=== PATIENT | male | born 1960 | race Hispanic/Latino ===

== ENCOUNTER 2021-11-15 06:26 | Observation (INO) | payer MEDICARE, OTHER ==
[2021-11-15 07:27] LABS: Basophils % (Auto) 0.4 % (0.0-1.8); Eosinophils # (Auto) 0.1 K/mm3 (0.0-0.4); Eosinophils % (Auto) 1.8 % (0.0-4.3); Hematocrit 35.4 % (35.5-45.6); Hemoglobin 12.2 gm/dl (11.8-15.2); Lymphocytes # (Auto) 1.9 K/mm3 (1.2-5.4); Lymphocytes % (Auto) 25.5 % (13.4-35.0); Mean Corpuscular HGB Conc 35 % (32-34); Mean Corpuscular Volume 92 fl (84-94); Monocytes # (Auto) 0.5 K/mm3 (0.0-0.8); Monocytes % (Auto) 6.7 % (0.0-7.3); Platelet Count 107 K/mm3 (140-440); Red Blood Count 3.85 M/mm3 (3.65-5.03)
[2021-11-15 07:35] LABS: INR 0.97 (0.87-1.13)
[2021-11-15 07:36] LABS: Partial Thromboplastin Time 32.1 Sec. (24.2-36.6)
[2021-11-15 07:37] LABS: Blood Urea Nitrogen 14 mg/dL (9-20); Calcium 9.3 mg/dL (8.4-10.2); Hemolysis Index 1
[2021-11-15 07:53] LABS: BUN/Creatinine Ratio 23
[2021-11-15] MEDS: SODIUM CHLORIDE 0.9% 500 ML 500 ML IV SCH ×2 (07:53→09:05)
[2021-11-15] MEDS ORDERED: ASPIRIN EC 325 MG TAB PO SCH (08:00)
[2021-11-15] MEDS ORDERED: HEPARIN/NS 5000 UNIT/500ML 1,000 ML IR ONE (08:27)
[2021-11-15] MEDS ORDERED: HEPARIN 10,000 UNITS/10 ML VIAL ONE (08:28)
[2021-11-15] MEDS: LIDOCAINE (1%) 10 MG/1 ML VIAL 20 ML MDV ONE ×2 (08:34→08:54)
[2021-11-15] MEDS: MIDAZOLAM 2 MG/2 ML INJ ONE ×3 (08:38→09:05)
[2021-11-15] MEDS ORDERED: fentaNYL 100 MCG/2 ML INJ ONE (08:54)
[2021-11-15] MEDS ORDERED: HEPARIN/NS 5000 UNIT/500ML 500 ML IR ONE (09:28)
[2021-11-15] MEDS ORDERED: CLOPIDOGREL 300 MG TAB ONE (09:43)
[2021-11-15] MEDS ORDERED: ALUM-MAG HYDROXIDE-SIMETHICONE 200-200-20MG/5ML ORAL LIQD 30 ML ONE (09:46)
--- NOTE | 2021-11-15 10:04 | Short Stay Summary ---
Short Stay Documentation Date of service: 11/15/21 - History H&P: obtained from office - Allergies and Medications Current Medications: Allergies No Known Allergies Allergy (Verified 11/15/21 07:00) Home Medications Medication Instructions Recorded Confirmed Last Taken Type Aspirin EC [Halfprin EC] 81 mg PO DAILY 11/15/21 11/15/21 11/14/21 History 81 mg Buprenorphine HCl/Naloxone HCl 1 tab SL QID 11/15/21 11/15/21 11/14/21 History [Suboxone 8 mg-2 mg SL Film] 1 tab Escitalopram [Lexapro] 10 mg PO BID 11/15/21 11/15/21 11/14/21 History 10 mg LORazepam [Lorazepam] 0.5 mg PO BID 11/15/21 11/15/21 11/14/21 History 0.5mg Metformin HCl [metFORMIN ER 1,000 mg PO BID 11/15/21 11/15/21 11/13/21 History Osmotic] 1000 mg Rosuvastatin Calcium [Crestor] 10 mg PO DAILY 11/15/21 11/15/21 11/14/21 History 10 mg atenoloL [Tenormin] 50 mg PO DAILY 11/15/21 11/15/21 11/14/21 History 50 mg Active Medications Aspirin (Aspirin Ec 325 Mg Tab) 325 mg PO ONCE@0800 [facility] Stop: 11/15/21 14:00 Last Admin: 11/15/21 07:53 Dose: 325 mg Sodium Chloride (Nacl 0.9% 500 Ml) 500 mls @ 50 mls/hr IV DIRECT ALMITA Stop: 11/15/21 17:59 Last Admin: 11/15/21 09:05 Dose: 50 mls/hr - Physical exam Integumentary: other (Dressing clean dry and intact with no signs of bleeding or hematoma) - Brief post op/procedure progress note Date of procedure: 11/15/21 Pre-op diagnosis: Coronary artery disease Post-op diagnosis: same - Hospital course Hospital course: Patient presents today for cardiac cath. Patient had PCI of protected left main, ostial left circumflex. Through groin site. Patient tolerated procedure well with no complications. Patient to be admitted overnight and monitored. Will restart patient's home meds and initiate aspirin, Plavix, and statin. Plan of care discussed with patient and patient's family who verbalized understanding and acknowledgment 11/16/2021-patient resting in bed in no acute distress. Patient denies any complaints of chest pain. Patient's cardiac cath site dressing clean dry and intact with no signs of bleeding or hematoma. Patient to be discharged home with prescription for Plavix. Discussed with patient the importance of compliance with DAPT therapy. Patient verbalized understanding acknowledgment. Patient to follow-up in the office as an outpatient - Disposition Condition at discharge: Good - Discharge Diagnoses (1) Coronary artery disease Status: Acute (2) History of coronary artery bypass graft Status: Acute (3) Hypertension Status: Acute (4) Diabetes Status: Acute (5) Chronic pain Status: Acute Short Stay Discharge Plan Activity: advance as tolerated Diet: low fat, low cholesterol, low salt Wound: keep clean and dry, per your surgeon's advice Follow up with: LEN FRANCO MD [Primary Care Provider] - 7 Days TG VALLE MD [Staff Physician] - 12/04/21 2:00 pm (Patient has a follow up in our [place] location. ) Prescriptions: Clopidogrel [Plavix] 75 mg PO QDAY 30 Days #30 tablet
--- NOTE | 2021-11-15 10:41 | Cardiac Catherization Report ---
DATE OF PROCEDURE: 11/15/2021 CARDIAC CATHETERIZATION REFERRING PHYSICIAN: Percy Harris M.D. INDICATIONS FOR PROCEDURE: The patient is a very pleasant 61-year-old gentleman with history of coronary bypass surgery in 2004, recurrent chest tightness, abnormal nuclear stress test despite goal directed medical therapy, referred for left heart catheterization. Risks, benefits and alternatives were explained in length prior to obtaining informed consent. PROCEDURE IN DETAIL: The patient was brought back to the component lab tech in a postabsorptive state, prepped and draped in sterile fashion. An 8 mL of 2% lidocaine used to anesthetize the right groin. A standard 6-Wolof sheath used to cannulate the right common femoral artery via modified Seldinger technique. All exchanges performed to exchange a J-tip guidewire. A JL3.5 catheter used to engage the left main. No dampening or ventricularization. Cineangiography performed in multiple projections. JR4 catheter used to cross the aortic valve under fluoroscopic guidance. Left ventriculography performed in 30-degree S[place]AGO and 30-degree BELIZE[place] projections via hand injections, catheter flushed. Manual pullback performed with continuous pressure monitoring. Catheter was used to engage the right coronary. No dampening or ventricularization. Next, catheter was used to engage both SVGs to the right coronary, one is to the PDA, one is to mid right coronary. Next, catheter was used to engage the right subclavian, selectively the mid right subclavian and due to tortuosity, selective third order angiography was performed. ISAIAH is not present or atretic. Next, the catheter was carefully removed over a wire from the right subclavian and placed into the left subclavian carefully over a wire. Again, tortuosity is significant. Selective third order mid left subclavian angiography was performed. Next, selective DOCKERY angiography was performed. Next, catheter was carefully removed from the left subclavian over a wire. DATA: Aortic pressure is 150/60, LV pressure is 150, LVEDP of 20 mmHg. Left ventriculography reveals a normal left ventricular systolic performance, estimated ejection fraction of 55-60%. No evidence of aortic stenosis. CORONARY ANATOMY: This is a right dominant system. Right coronary is occluded natively in the mid segment. SVG to PDA is widely patent. SVG to mid right coronary is occluded. Left main without significant disease. LAD is occluded proximally. There is a 99% stenosis of the distal left main and ostial left circumflex. Again, ISAIAH to OM/lateral wall is occluded. DOCKERY to LAD is widely patent. The left subclavian is widely patent, just tortuous, same with the right subclavian, which is widely patent, just tortuous. The patient remained in normal sinus rhythm throughout the procedure. Given recurrent recalcitrant chest pain despite goal directed medical therapy, I believe the culprit lesion is unrevascularized lateral wall. Given occluded ISAIAH to LAD, we decided to proceed with PCI of protected left main, the ostial left circumflex. Heparin was given. Abnormal ACT was confirmed. The patient already got aspirin this morning. We used an EBU 3.75 guide to engage the left main without difficulty. A [place] wire used to cross the lesion without difficulty. We used a 3.0 x 12 compliant balloon to predilate the lesion. Next, a 3.5 x 15 [place] drug-eluting stent deployed at 12 ALIYA for 30 seconds. Excellent angiographic result. Intravascular ultrasound was used, which reveals a well-apposed and well-expanded stent throughout. The proximal left main and the remainder of the left circumflex is without significant obstructive disease. No dissection or perforation. Final angiogram reveals NGOC 3 flow, 0% residual stenosis, excellent angiographic result. There were no immediate complications. The patient is chest pain free, hemodynamically and electrically stable. I directly supervised the administration of fentanyl and Versed for moderate sedation from 8:50 a.m. to 9:40 a.m. No immediate complications identified. CONCLUSIONS: 1. Severe wales coronary artery disease as aforementioned with a chronic total occlusion of the mid arc right coronary. 2. Chronic total occlusion of proximal LAD. 3. Patent DOCKERY to LAD. 4. Occluded ISAIAH to OM. 5. Occluded SVG to mid right coronary. 6. Patent SVG to distal right coronary. 7. 99% distal left main to ostial left circumflex stenosis. A. Successful IVUS-guided percutaneous coronary intervention with placement of drug-eluting stent ([place] 3.5 x 15) with excellent final angiographic and ultrasonographic results. 8. Preserved left ventricular systolic performance, estimated ejection fraction 55-60%. 9. Patent but tortuous mid to distal right subclavian artery with atretic ISAIAH. 10. Patent, but tortuous left subclavian artery with patent DOCKERY. The patient is clinically stable. Aspirin, Plavix, statin. Continue current medications. Standard groin care. Results of procedure explained to the patient and family. All questions were addressed. The patient will be discharged home in stable condition tomorrow as long as there are no significant changes noted. TID: [id number] RECEIPT: [id number] ROHAN/ROSALINA
[2021-11-15] MEDS ORDERED: BUPRENORPHINE 2 MG/NALOXONE 0.5 MG FILM SL SCH (11:00)
[2021-11-15] MEDS ORDERED: traMADol 50 MG TAB PO PRN (11:00)
[2021-11-15] MEDS ORDERED: MORPHINE 2 MG/1 ML INJ IV PRN (11:00)
[2021-11-15] MEDS ORDERED: HYDROcodone/ACETAMINOPHEN 5-325 MG TAB PO PRN (11:00)
[2021-11-15] MEDS: BUPRENORPHINE 2 MG/NALOXONE 0.5 MG FILM SL SCH ×4 (11:31→21:40)
[2021-11-15] MEDS ORDERED: KETOROLAC 30 MG/1 ML INJ IV SCH (12:00)
[2021-11-15] MEDS ORDERED: ACETAMINOPHEN 325 MG TAB PO PRN (12:00)
[2021-11-15] MEDS ORDERED: ONDANSETRON 4 MG/2 ML INJ IV PRN (12:00)
[2021-11-15] MEDS ORDERED: hydrALAZINE 20 MG/1 ML INJ IV PRN ×2 (12:00)
[2021-11-15] MEDS ORDERED: DEXTROSE 50% IN WATER (25GM) 50 ML SYRINGE IV PRN (12:03)
[2021-11-15] MEDS ORDERED: LORazepam 0.5 MG TAB PO PRN (12:08)
[2021-11-15] MEDS: ESCITALOPRAM 10 MG TAB PO SCH (13:25)
[2021-11-15] MEDS: atenoloL 50 MG TAB PO SCH (14:10)
[2021-11-15] MEDS: INSULIN LISPRO 100 UNIT/ML SUB-Q SCH (17:15)
--- NOTE | 2021-11-15 18:48 | Electrocardiograph Report ---
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
--- NOTE | 2021-11-15 18:50 | Electrocardiograph Report ---
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
[2021-11-16] MEDS: INSULIN LISPRO 100 UNIT/ML SUB-Q SCH ×2 (00:41→08:54)
[2021-11-16] MEDS: LISINOPRIL 20 MG TAB PO SCH ×2 (00:42→10:01)
[2021-11-16 05:45] LABS: Basophils % (Auto) 0.3 % (0.0-1.8); Eosinophils # (Auto) 0.1 K/mm3 (0.0-0.4); Eosinophils % (Auto) 2.2 % (0.0-4.3); Hematocrit 34.8 % (35.5-45.6); Hemoglobin 11.8 gm/dl (11.8-15.2); Lymphocytes # (Auto) 1.5 K/mm3 (1.2-5.4); Lymphocytes % (Auto) 30.6 % (13.4-35.0); Mean Corpuscular HGB Conc 34 % (32-34); Mean Corpuscular Volume 93 fl (84-94); Monocytes # (Auto) 0.4 K/mm3 (0.0-0.8); Monocytes % (Auto) 7.4 % (0.0-7.3); Red Blood Count 3.75 M/mm3 (3.65-5.03)
[2021-11-16 05:46] LABS: Platelet Count 98 K/mm3 (140-440)
[2021-11-16 06:04] LABS: Blood Urea Nitrogen 11 mg/dL (9-20); Calcium 8.5 mg/dL (8.4-10.2); Hemolysis Index 39
[2021-11-16 06:05] LABS: BUN/Creatinine Ratio 22
--- NOTE | 2021-11-16 08:37 | XRay Report ---
CHEST 1 VIEW 11/16/2021 7:17 AM INDICATION / CLINICAL INFORMATION: post pci. Chest pain. COMPARISON: None available. FINDINGS: SUPPORT DEVICES: None. HEART / MEDIASTINUM: Heart is upper normal size. Median sternotomy wires and CABG clips are present. LUNGS / PLEURA: No significant pulmonary or pleural abnormality. No pneumothorax. ADDITIONAL FINDINGS: No significant additional findings. IMPRESSION: 1. No acute findings. Signer Name: Daryl Kern MD Signed: 11/16/2021 8:33 AM Workstation Name: [id number]
[2021-11-16] MEDS ORDERED: ASPIRIN 81 MG TAB CHEW PO SCH ×2 (10:00)
[2021-11-16] MEDS ORDERED: CLOPIDOGREL 75 MG TAB PO SCH (10:00)
[2021-11-16] MEDS: atenoloL 50 MG TAB PO SCH (10:00)
[2021-11-16] MEDS: ESCITALOPRAM 10 MG TAB PO SCH (10:00)
[2021-11-16] MEDS: BUPRENORPHINE 2 MG/NALOXONE 0.5 MG FILM SL SCH (10:01)
[2021-11-16 11:24] VITALS: BP 135/61
--- NOTE | 2021-11-16 14:26 | Electrocardiograph Report ---
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
== END 2021-11-16 15:20 | disposition home or self-care (01) ==
LOC: CATHLABREC 06:26 → 4A 10:04
PROVIDERS: ADMIT Internal Medicine; ATTEND Internal Medicine
DX: I25.10 Atherosclerotic heart disease of native coronary artery without angina pectoris (principal); R07.89 Other chest pain; R94.39 Abnormal result of other cardiovascular function study; Z95.1 Presence of aortocoronary bypass graft; Z79.899 Other long term (current) drug therapy; Z98.890 Other specified postprocedural states
CPT/HCPCS: 36415; 71045; 80048; 82962; 84484; 85025; 85347; 85610; 85730; 92978; 93005; 93459; C1725; C1753; C1769; C1874; C1887; C1894; C9600; G0378; G0379; J1644; J2250; J3010; J7040; 92928; Q9967